=== PATIENT | male | born 1965 | race Hispanic/Latino ===

== ENCOUNTER 2017-07-04 09:32 | Day surgery (SDC) | payer SELFPAY ==
[2017-07-04 10:22] LABS: #Basophils 0.1 thou/uL (0.0-0.2); #Eosinphils 0.5 thou/uL (0.0-0.7); #Lymphocytes 2.8 thou/uL (1.20-3.40); #Monocytes 0.5 thou/uL (0.11-0.59); #Neutrophils 6.9 thou/uL (1.40-6.50); %Basophils 0.7 % (0.0-1.0); %Eosinophils 4.8 % (0.0-10.0); %Lymphocytes 25.8 % (21.0-51.0); %Monocytes 4.8 % (0.0-10.0); Hematocrit 43.4 % (42.0-52.0); Mean Platelet Volume 6.8 fL (7.4-10.4); Red Blood Cell (RBC) Count 4.58 mill/uL (4.70-6.10); White Blood Cell (WBC) Count 10.8 thou/uL (4.8-10.8)
[2017-07-04 10:53] LABS: Lactic Acid - Sepsis 1.3 mmol/L (0.5-2.2)
[2017-07-04 10:56] LABS: ALT (SGPT) 23 U/L (8-55); AST (SGOT) 14 U/L (5-34); Alkaline Phosphatase 59 U/L (40-150); Anion Gap 11 mmol/L (10-20); BUN (Urea Nitrogen) 12 mg/dL (8.9-20.6); Bilirubin, Total 0.4 mg/dL (0.2-1.2); Calc. Creatinine Clearance 0 mL/min (70-130); Calcium 9.8 mg/dL (7.8-10.44); Carbon Dioxide 27 mmol/L (22-29); Chloride 107 mmol/L (98-107); Estimated GFR-MDRD Greater than 90; Globulin 3.3 g/dL (2.4-3.5); Protein, Total 7.5 g/dL (6.0-8.3)
[2017-07-04] MEDS ORDERED: Morphine 4 MG/ML VIAL ONE (11:14)
[2017-07-04] MEDS ORDERED: Ondansetron HCl/PF 4 MG/2 ML Vial ONE ×2 (11:15→15:50)
[2017-07-04 14:26] LABS: Bilirubin Negative (Negative); Blood, Urine Negative (Negative); Glucose, Urine (Dipstick) Negative (Negative); Ketone, Urine Negative (Negative); Nitrite Negative (Negative); Protein, Urine (Dipstick) Negative (Neg-Trace); Urobilinogen 0.2 mg/dL (0.2-1.0)
[2017-07-04] MEDS ORDERED: Dexamethasone 20 MG/5 ML VIAL ONE (15:50)
[2017-07-04] MEDS ORDERED: Glycopyrrolate 0.2 MG/ML 5 ML SYRINGE ONE (15:50)
[2017-07-04] MEDS ORDERED: Propofol 200 MG/20 ML VIAL ONE ×2 (15:50)
[2017-07-04] MEDS ORDERED: Ketorolac Tromethamine 30 MG/ML VIAL ONE (15:50)
[2017-07-04] MEDS ORDERED: Lidocaine 1% PF 5 ML VIAL ONE (15:50)
[2017-07-04] MEDS ORDERED: Metoclopramide HCl 10 MG/2 ML VIAL ONE (15:50)
--- NOTE | 2017-07-04 17:54 | OP ---
DATE OF OPERATION: 07/04/2017 PREOPERATIVE DIAGNOSIS: Incarcerated umbilical hernia. POSTOPERATIVE DIAGNOSIS: Incarcerated umbilical hernia. PROCEDURE PERFORMED: Incarcerated umbilical hernia repair with mesh, Proceed ventral patch 4 cm. SURGEON: Ian Barry M.D. ANESTHESIA: General. ESTIMATED BLOOD LOSS: Minimal. COMPLICATIONS: None. SPECIMEN: None. FINDINGS: Umbilical hernia. TECHNIQUE: The patient was taken to the operating room and placed supine on the table. After genera l anesthetic was obtained, the abdomen was prepped and draped in a sterile fashion. Curved incision was made below the umbilicus. Cautery was used to dissect down to and score the fascia. The umbilic al stalk was amputated from the fascia exposing the umbilical defect. The incarcerated preperitoneal and omental fat was able to be reduced back into the abdominal cavity. The edges of the fascial def ect are dissected back to good tissue. The small Proceed ventral patch was brought into the sterile field. The underlay was placed in the abdominal cavity. Its tails pulled up laterally to pull the m esh up against the posterior abdominal wall. The tails were sewn via U stitch of permanent braided s uture at the edges of the fascia superiorly, inferiorly, and laterally. The tails were cut at the le veto of the fascia. The wound is irrigated. Local anesthetic is applied. The fascia was closed loos kareem over the mesh. The umbilical stalk is tacked back down using 3-0 Vicryl. The skin was closed us ing running 4-0 Monocryl and Dermabond. The patient was en route to recovery in stable condition. A ll instrument counts, needle counts, and lap counts were correct.
== END 2017-07-04 17:13 | disposition home or self-care (01) ==
LOC: ERS 09:32 → SDC 12:48 → ERS 12:48 → SDC 17:13 → ERS 18:30
PROVIDERS: ATTEND Surgery
PROC: 0WUF0JZ Supplement Abdominal Wall with Synthetic Substitute, Open Approach (ICD-10-PCS; principal; 2017-07-04)
DX: K42.0 Umbilical hernia with obstruction, without gangrene (principal); I10 Essential (primary) hypertension; Z77.22 Contact with and (suspected) exposure to environmental tobacco smoke (acute) (chronic); Z98.890 Other specified postprocedural states
CPT/HCPCS: 36415; 80053; 81003; 83605; 85025; 93005; 96361; 96374; 96375; J1100; J1885; J2001; J2270; J2405; J2704; J2765

== ENCOUNTER 2019-03-25 22:16 | Emergency (ER) | payer SELFPAY ==
[2019-03-25] MEDS ORDERED: Ketorolac Tromethamine 30 MG/ML VIAL ONE (22:44)
[2019-03-25 22:49] LABS: #Basophils 0.1 thou/uL (0.0-0.2); #Eosinphils 0.6 thou/uL (0.0-0.7); #Lymphocytes 3.5 thou/uL (1.20-3.40); #Monocytes 0.9 thou/uL (0.11-0.59); #Neutrophils 7.9 thou/uL (1.40-6.50); %Basophils 0.5 % (0.0-1.0); %Eosinophils 4.6 % (0.0-10.0); %Monocytes 6.7 % (0.0-10.0); %Neutrophils 61.2 % (42.0-75.0); Hemoglobin 14.5 g/dL (14.0-18.0); Mean Corpuscular HGB CONC 34.1 g/dL (32.0-36.0); Mean Corpuscular Hemoglobin 32.2 pg (27.0-31.0); Mean Corpuscular Volume 94.2 fL (78.0-98.0); Mean Platelet Volume 7.1 fL (7.4-10.4); Platelet Count 275 thou/uL (130-400); RBC Distribution Width 11.7 % (11.5-14.5)
[2019-03-25 23:08] LABS: Bacteria/HPF None Seen HPF (None Seen); Bilirubin Negative (Negative); Blood, Urine Negative (Negative); Calcium Oxalate Crystals Rare HPF (None Seen); Clarity Clear (Clear); Glucose, Urine (Dipstick) Normal (Negative); Leukocyte Negative Leu/uL (Negative); Nitrite Negative (Negative); Protein, Urine (Dipstick) 50 mg/dL (Neg-Trace); RBC/HPF 0-3 HPF (0-3); Squamous Epithelial None Seen HPF (0-3); Urobilinogen Normal mg/dL (Less than 2); WBC/HPF 0-3 HPF (0-3)
[2019-03-25 23:13] LABS: ALT (SGPT) 16 U/L (8-55); AST (SGOT) 11 U/L (5-34); Albumin 4.3 g/dL (3.5-5.0); Alkaline Phosphatase 66 U/L (40-150); Anion Gap 12 mmol/L (10-20); BUN (Urea Nitrogen) 13 mg/dL (8.4-25.7); Bilirubin, Total 0.2 mg/dL (0.2-1.2); Calc. Creatinine Clearance 0 mL/min (70-130); Calcium 9.5 mg/dL (7.8-10.44); Carbon Dioxide 28 mmol/L (22-29); Chloride 103 mmol/L (98-107); Estimated GFR-MDRD Greater than 90; Globulin 2.7 g/dL (2.4-3.5); Glucose 92 mg/dL (70-105); Lipase 14 U/L (8-78); Potassium 3.8 mmol/L (3.5-5.1); Sodium 139 mmol/L (136-145)
--- NOTE | 2019-03-25 23:13 | CT ---
CT Stone Protocol History: Low back pain. Comparison: CT abdomen and pelvis 2013 Findings: Lung bases are clear. No pericardial effusion. There is cholelithiasis. The right kidney has slightly hyperdense right renal vein. There is a hypodensity interpolar right ki dney measuring fluid attenuation. No dilated loops of large or small bowel. The appendix has a few appendicoliths without enlargement o r periappendiceal inflammation. Noncontrast evaluation of the spleen and adrenal glands are unremarkable. Incidental note is made of a splenule. Mild hypertrophy left adrenal gland. No retroperitoneal periaortic adenopathy. Impression: 1. Subtle asymmetric enlargement right renal vein which is slightly hyperdense. This may be artifactu al although renal vein thrombosis can have this appearance. Exam is limited without intravenous contrast. Ultrasound may be helpful this patient. 2. New hypodensity interpolar right kidney measures fluid attenuation suggestive of a cyst although s hould be interrogated on ultrasound. 3. No nephroureterolithiasis. 4. Normal appendix. 5. Cholelithiasis without cholecystitis.
[2019-03-25 23:16] LABS: Sperm/HPF 4+ HPF (None Seen)
--- NOTE | 2019-03-26 00:04 | ULT ---
US Renal Rt Unilateral History: Renal vein thrombosis Comparison: CT same day Findings: Right renal vein is patent. Interpolar right renal cyst. No hydronephrosis. Impression: Right renal cyst and patent renal vein. No renal vein thrombosis.
== END 2019-03-26 02:12 | disposition home or self-care (01) ==
LOC: ERS 22:16
DX: R10.9 Unspecified abdominal pain (principal); Z71.6 Tobacco abuse counseling; I10 Essential (primary) hypertension; F41.9 Anxiety disorder, unspecified; F17.210 Nicotine dependence, cigarettes, uncomplicated; Z79.899 Other long term (current) drug therapy
CPT/HCPCS: 74176; 76775; 80053; 81003; 81015; 83605; 83690; 85025; 94760; 96361; 96374; 99406; J1885

== ENCOUNTER 2021-06-05 09:46 | Outpatient (CLI) | payer SELFPAY ==
[2021-06-05 10:43] LABS: #Eosinphils 0.5 10x3/uL (0.0-0.5); #Monocytes 0.6 10x3/uL (0.0-1.1); #Neutrophils 6.3 10x3/uL (1.5-8.4); %Basophils 0.4 % (0.0-2.0); %Eosinophils 5.4 % (0.0-6.0); %Lymphocytes 23.6 % (18.0-47.0); %Monocytes 5.9 % (0.0-10.0); %Neutrophils 64.1 % (40.0-75.0); Hemoglobin 8.3 g/dL (13.5-17.5); Mean Corpuscular HGB CONC 28.3 g/dL (32.0-36.0); Mean Corpuscular Hemoglobin 20.5 pg (27.0-33.0); Mean Corpuscular Volume 72.3 fl (81.2-95.1); Mean Platelet Volume 9.3 fl (7.4-10.4); Platelet Count 378 10x3/uL (150-450); RBC Distribution Width 15.6 % (11.5-14.5); Red Blood Cell (RBC) Count 4.05 10x6/uL (4.32-5.72); White Blood Cell (WBC) Count 9.8 10x3/uL (3.5-10.5)
[2021-06-05 11:11] LABS: ALT (SGPT) 19 U/L (8-55); AST (SGOT) 12 U/L (5-34); Alkaline Phosphatase 76 U/L (40-110); Bilirubin, Direct 0.2 mg/dL (0.1-0.3); Bilirubin, Total 0.4 mg/dL (0.2-1.2); Protein, Total 6.8 g/dL (6.0-8.3)
[2021-06-05 15:28] LABS: Hypochromia SLIGHT = 6-15 cells (100X) (0-5/hpf); Microcytosis SLIGHT = 6-15 cells (100X) (0-5/hpf)
[2021-06-05 15:29] LABS: Platelet Morphology Comment Appears Adequate
[2021-06-05 21:10] LABS: SARS-CoV-2 PCR by NAA Not Detected (NotDetected)
== END 2021-06-05 09:47 | disposition home or self-care (01) ==
LOC: LABBT 09:46
PROVIDERS: ATTEND Internal Medicine Cardiovascular Disease
DX: Z01.812 Encounter for preprocedural laboratory examination (principal); Z20.822 Contact with and (suspected) exposure to COVID-19
CPT/HCPCS: 80076; 85025; U0003; U0005

== ENCOUNTER 2021-08-15 09:04 | Emergency (ER) | payer SELFPAY ==
[2021-08-15 10:27] LABS: ALT (SGPT) 22 U/L (8-55); AST (SGOT) 18 U/L (5-34); Albumin 3.5 g/dL (3.5-5.0); Alkaline Phosphatase 61 U/L (40-110); Anion Gap 11 mmol/L (10-20); BUN (Urea Nitrogen) 9 mg/dL (8.4-25.7); Bilirubin, Total 0.2 mg/dL (0.2-1.2); Calc. Creatinine Clearance 0 mL/min (70-130); Calcium 8.8 mg/dL (7.8-10.44); Carbon Dioxide 23 mmol/L (22-29); Chloride 107 mmol/L (98-107); Globulin 2.9 g/dL (2.4-3.5); Glucose 112 mg/dL (70-105); Potassium 3.8 mmol/L (3.5-5.1); Protein, Total 6.4 g/dL (6.0-8.3); Sodium 137 mmol/L (136-145)
[2021-08-15 10:40] LABS: #Eosinphils 0.2 thou/uL (0.0-0.7); #Lymphocytes 1.4 thou/uL (1.20-3.40); #Monocytes 0.7 thou/uL (0.11-0.59); #Neutrophils 5.1 thou/uL (1.40-6.50); %Basophils 0.2 % (0.0-1.0); %Eosinophils 2.9 % (0.0-10.0); %Lymphocytes 19.2 % (21.0-51.0); %Monocytes 9.7 % (0.0-10.0); %Neutrophils 68.1 % (42.0-75.0); Hypochromia SLIGHT = 6-15 cells (100X) (0-5/hpf); MDiff Complete? YES; Mean Corpuscular HGB CONC 29.1 g/dL (32.0-36.0); Mean Corpuscular Hemoglobin 19.6 pg (27.0-31.0); Mean Corpuscular Volume 67.5 fL (78.0-98.0); Mean Platelet Volume 8.9 fL (7.4-10.4); Microcytosis SLIGHT = 6-15 cells (100X) (0-5/hpf); Platelet Count 276 thou/uL (130-400); Red Blood Cell (RBC) Count 4.09 mill/uL (4.70-6.10); White Blood Cell (WBC) Count 7.5 thou/uL (4.8-10.8)
[2021-08-15] MEDS ORDERED: Iopamidol-370 76% 500 ML 1 ML ONE (11:25)
[2021-08-15 12:31] LABS: Bilirubin Negative (Negative); Blood, Urine Negative (Negative); Clarity Clear (Clear); Glucose, Urine (Dipstick) Normal (Negative); Ketone, Urine Negative (Negative); Leukocyte Negative Leu/uL (Negative); Nitrite Negative (Negative); Protein, Urine (Dipstick) Negative (Neg-Trace); Specific Gravity, Urine 1.008 (1.002-1.036); Urobilinogen Normal mg/dL (Less than 2)
== END 2021-08-15 13:10 | disposition home or self-care (01) ==
LOC: ERS 09:04
DX: R19.7 Diarrhea, unspecified (principal); I10 Essential (primary) hypertension; E11.9 Type 2 diabetes mellitus without complications; E78.5 Hyperlipidemia, unspecified; D64.9 Anemia, unspecified; F17.210 Nicotine dependence, cigarettes, uncomplicated; Z79.899 Other long term (current) drug therapy
CPT/HCPCS: 36415; 74177; 80053; 81003; 85025; Q9967

== ENCOUNTER 2021-08-31 11:02 | Outpatient (CLI) | payer SELFPAY ==
[2021-09-01 08:23] LABS: SARS-CoV-2 PCR by NAA DETECTED (NotDetected)
== END 2021-08-31 11:03 | disposition home or self-care (01) ==
LOC: LABBT 11:02
PROVIDERS: ATTEND Internal Medicine Gastroenterology
DX: U07.1 COVID-19 (principal); D50.9 Iron deficiency anemia, unspecified; Z86.010 Personal history of colon polyps; Z85.038 Personal history of other malignant neoplasm of large intestine
CPT/HCPCS: U0003; U0005

== ENCOUNTER 2021-09-03 07:07 | Day surgery (SDC) | payer OTHER ==
[2021-08-31 11:18] VITALS: BMI 34.0
[2021-09-03] MEDS ORDERED: PROPOFOL 200 MG/20 ML VIAL ONE (09:41)
== END 2021-09-03 11:00 | disposition home or self-care (01) ==
LOC: SDC 07:07
PROVIDERS: ATTEND Internal Medicine Gastroenterology
PROC: 0DJ08ZZ Inspection of Upper Intestinal Tract, Via Natural or Artificial Opening Endoscopic (ICD-10-PCS; principal; 2021-09-03)
PROC: 0DBL8ZX Excision of Transverse Colon, Via Natural or Artificial Opening Endoscopic, Diagnostic (ICD-10-PCS; principal; 2021-09-03)
DX: D50.9 Iron deficiency anemia, unspecified (principal); C18.3 Malignant neoplasm of hepatic flexure; U07.1 COVID-19; E11.51 Type 2 diabetes mellitus with diabetic peripheral angiopathy without gangrene; K21.9 Gastro-esophageal reflux disease without esophagitis; I10 Essential (primary) hypertension; F17.200 Nicotine dependence, unspecified, uncomplicated; E78.00 Pure hypercholesterolemia, unspecified; Z87.19 Personal history of other diseases of the digestive system; Z79.02 Long term (current) use of antithrombotics/antiplatelets; Z79.84 Long term (current) use of oral hypoglycemic drugs; Z79.899 Other long term (current) drug therapy
CPT/HCPCS: 88305; J2704

== ENCOUNTER 2021-11-30 20:14 | Inpatient (IN) | payer OTHER, SELFPAY ==
[~2021-11-30 20:14] MED LIST: Iopamidol-370 76% 500 ML 1 ML ONE
[2021-11-30] MEDS ORDERED: Ondansetron PF 4 MG/2 ML Vial ONE (20:44)
[2021-11-30] MEDS ORDERED: Morphine 4 MG/ML VIAL ONE ×3 (20:44→22:03)
[2021-11-30 20:56] LABS: #Eosinphils 0.2 thou/uL (0.0-0.7); #Lymphocytes 1.3 thou/uL (1.20-3.40); #Monocytes 0.5 thou/uL (0.11-0.59); %Basophils 0.3 % (0.0-1.0); %Eosinophils 2.5 % (0.0-10.0); %Neutrophils 79.3 % (42.0-75.0); Hemoglobin 14.6 g/dL (14.0-18.0); Mean Corpuscular HGB CONC 33.2 g/dL (32.0-36.0); Mean Corpuscular Hemoglobin 30.1 pg (27.0-31.0); Mean Corpuscular Volume 90.5 fL (78.0-98.0); Mean Platelet Volume 8.9 fL (7.4-10.4); Platelet Count 257 thou/uL (130-400); RBC Distribution Width 20.5 % (11.5-14.5); Red Blood Cell (RBC) Count 4.86 mill/uL (4.70-6.10)
[2021-11-30 21:20] LABS: ALT (SGPT) 22 U/L (8-55); AST (SGOT) 17 U/L (5-34); Albumin 4.2 g/dL (3.5-5.0); Alkaline Phosphatase 79 U/L (40-110); Anion Gap 15 mmol/L (10-20); BUN (Urea Nitrogen) 8 mg/dL (8.4-25.7); Bilirubin, Total 0.6 mg/dL (0.2-1.2); Calc. Creatinine Clearance 0 mL/min (70-130); Carbon Dioxide 20 mmol/L (22-29); Chloride 104 mmol/L (98-107); Globulin 3.1 g/dL (2.4-3.5); Glucose 130 mg/dL (70-105); Lipase 9 U/L (8-78); Potassium 3.9 mmol/L (3.5-5.1); Protein, Total 7.3 g/dL (6.0-8.3); Sodium 135 mmol/L (136-145)
[2021-11-30] MEDS ORDERED: Morphine 4 MG/ML VIAL SLOW IVP PRN (23:07)
[2021-11-30] MEDS ORDERED: Ondansetron ODT 4 MG TAB SL PRN (23:15)
[2021-11-30] MEDS ORDERED: Ondansetron PF 4 MG/2 ML Vial IVP PRN ×2 (23:15→23:22)
[2021-11-30] MEDS ORDERED: Dextrose 50% Abboject 50 ML SYRINGE SLOW IVP PRN (23:22)
[2021-11-30] MEDS ORDERED: HumaLOG 300 UNITS/3 ML VIAL SC PRN (23:22)
[2021-11-30] MEDS ORDERED: Promethazine HCl 25 MG/ML VIAL IM PRN (23:22)
[2021-11-30] MEDS ORDERED: hydrALAZINE 20 MG/ML VIAL SLOW IVP PRN (23:22)
[2021-11-30] MEDS ORDERED: Dextrose 5% in Water 1,000 ML IV PRN (23:22)
[2021-11-30] MEDS ORDERED: Ketorolac Tromethamine 30 MG/ML VIAL ONE (23:24)
[2021-11-30] MEDS: Sodium Chloride 0.9% 1,000 ML IV SCH (23:27)
[2021-11-30] MEDS: Ketorolac Tromethamine 30 MG/ML VIAL IVP PRN (23:28)
[2021-12-01] MEDS: Morphine 4 MG/ML VIAL SLOW IVP PRN ×5 (01:10→21:45)
[2021-12-01 01:11] LABS: SARS-CoV-2 NAA Rapid Test Not Detected (NotDetected)
[2021-12-01 06:17] VITALS: BMI 31.4
[2021-12-01] MEDS: Sodium Chloride 0.9% 1,000 ML IV SCH ×2 (08:57→20:29)
[2021-12-01] MEDS: Lisinopril 20 MG TAB PO SCH (08:59)
[2021-12-01] MEDS: Famotidine/PF 20 mg/2ml Vial SLOW IVP SCH ×2 (08:59→21:46)
[2021-12-01] MEDS: Famotidine 20 MG TAB PO SCH ×2 (08:59→20:29)
[2021-12-01] MEDS ORDERED: Enoxaparin Sodium 40 MG/0.4 ML SYRINGE SC SCH (09:00)
[2021-12-01] MEDS: Neomycin 500 mg Tablet PO SCH ×4 (14:15→18:46)
[2021-12-01] MEDS: metroNIDAZOLE 500 MG TAB PO SCH ×2 (16:18→20:29)
[2021-12-02] MEDS: Morphine 4 MG/ML VIAL SLOW IVP PRN (00:36)
[2021-12-02] MEDS: Sodium Chloride 0.9% 1,000 ML IV SCH ×5 (03:28→23:42)
[2021-12-02] MEDS: Famotidine/PF 20 mg/2ml Vial SLOW IVP SCH ×2 (10:05→23:41)
[2021-12-02] MEDS: Famotidine 20 MG TAB PO SCH ×2 (10:32→23:41)
[2021-12-02] MEDS: metroNIDAZOLE 500 MG TAB PO SCH (10:32)
[2021-12-02] MEDS: Lisinopril 20 MG TAB PO SCH (10:32)
[2021-12-02] MEDS: Ketorolac Tromethamine 30 MG/ML VIAL IVP PRN (10:33)
[2021-12-02] MEDS ORDERED: Midazolam HCl 2 mg/2 ml Vial ONE (12:49)
[2021-12-02] MEDS ORDERED: Fentanyl 100 MCG/2 ML VIAL ONE ×4 (12:49→17:26)
[2021-12-02] MEDS ORDERED: Ropivacaine 0.5% HCl/PF (150 MG/30 ML VIAL) ONE (12:49)
[2021-12-02] MEDS ORDERED: Bupivacaine 0.25% 10 ML VIAL ONE (14:04)
[2021-12-02] MEDS ORDERED: Lidocaine 1% w/Epinephrine 1:100K 20 ML VIAL ONE (14:04)
[2021-12-02] MEDS ORDERED: Sodium Chloride 0.9% 100 ML ONE (14:29)
[2021-12-02] MEDS ORDERED: cefOXitin 2 GM VIAL ONE (14:29)
[2021-12-02] MEDS ORDERED: HumaLOG 300 UNITS/3 ML VIAL SC PRN (17:21)
[2021-12-02] MEDS ORDERED: Promethazine HCl 25 MG/ML VIAL IM PRN ×2 (17:21→17:42)
[2021-12-02] MEDS ORDERED: Ondansetron PF 4 MG/2 ML Vial IVP PRN ×2 (17:21→17:42)
[2021-12-02] MEDS ORDERED: diphenhydrAMINE 50 MG/ML VIAL IM PRN (17:42)
[2021-12-02] MEDS ORDERED: diphenhydrAMINE 50 MG/ML VIAL IVP PRN (17:42)
[2021-12-02] MEDS ORDERED: fentaNYL Citrate/PF 2,000 MCG in Sodium Chloride 0.9% 60 ML IV SCH (17:42)
[2021-12-02] MEDS ORDERED: Zolpidem Tartrate 5 MG TAB PO PRN (17:42)
[2021-12-02] MEDS ORDERED: Naloxone HCl 0.4 mg/ml Vial IV PRN (17:42)
[2021-12-02] MEDS ORDERED: diphenhydrAMINE 25 MG CAP PO PRN (17:42)
[2021-12-02] MEDS ORDERED: Communication Order-Pharmacy FS SCH (17:45)
[2021-12-02] MEDS: cefOXitin 2 GM in Sodium Chloride 0.9% 100 ML IVPB SCH (23:41)
[2021-12-02] MEDS: Ketorolac Tromethamine 30 MG/ML VIAL IVP SCH (23:41)
[2021-12-02] MEDS: Acetaminophen 325 MG TAB PO SCH (23:41)
[2021-12-02] MEDS: hydrALAZINE 20 MG/ML VIAL SLOW IVP PRN (23:42)
[2021-12-03] MEDS: hydrALAZINE 20 MG/ML VIAL SLOW IVP PRN (04:18)
[2021-12-03] MEDS: Ketorolac Tromethamine 30 MG/ML VIAL IVP SCH ×3 (05:58→18:28)
[2021-12-03] MEDS: cefOXitin 2 GM in Sodium Chloride 0.9% 100 ML IVPB SCH (05:59)
[2021-12-03] MEDS: Acetaminophen 325 MG TAB PO SCH ×4 (06:00→23:40)
[2021-12-03 06:11] LABS: Anion Gap 15 mmol/L (10-20); BUN (Urea Nitrogen) 4 mg/dL (8.4-25.7); Calc. Creatinine Clearance 147 mL/min (70-130); Calcium 8.8 mg/dL (7.8-10.44); Carbon Dioxide 21 mmol/L (22-29); Chloride 104 mmol/L (98-107); Glucose 119 mg/dL (70-105); Potassium 3.8 mmol/L (3.5-5.1); Sodium 136 mmol/L (136-145)
[2021-12-03 06:12] LABS: #Eosinphils 0.1 thou/uL (0.0-0.7); #Lymphocytes 1.8 thou/uL (1.20-3.40); #Monocytes 0.9 thou/uL (0.11-0.59); #Neutrophils 10.2 thou/uL (1.40-6.50); %Basophils 0.1 % (0.0-1.0); %Eosinophils 0.5 % (0.0-10.0); %Lymphocytes 13.9 % (21.0-51.0); %Monocytes 6.8 % (0.0-10.0); %Neutrophils 78.6 % (42.0-75.0); Band 5 % (5-11); Lymphocytes 21 % (21-51); MDiff Complete? YES; Mean Corpuscular HGB CONC 33.9 g/dL (32.0-36.0); Mean Corpuscular Hemoglobin 30.7 pg (27.0-31.0); Mean Corpuscular Volume 90.8 fL (78.0-98.0); Mean Platelet Volume 8.6 fL (7.4-10.4); Monocytes 7 % (0-10); Neutrophil 67 % (42-75); Platelet Count 243 thou/uL (130-400); Platelet Morphology Comment Appears Adequate; RBC Distribution Width 19.7 % (11.5-14.5); RBC Morphology Normal; Red Blood Cell (RBC) Count 4.55 mill/uL (4.70-6.10); White Blood Cell (WBC) Count 12.9 thou/uL (4.8-10.8)
[2021-12-03] MEDS: Famotidine 20 MG TAB PO SCH ×2 (09:01→21:19)
[2021-12-03] MEDS: Enoxaparin Sodium 40 MG/0.4 ML SYRINGE SC SCH (09:02)
[2021-12-03] MEDS: Famotidine/PF 20 mg/2ml Vial SLOW IVP SCH ×2 (09:07→22:08)
[2021-12-03] MEDS: Sodium Chloride 0.9% 1,000 ML IV SCH ×2 (12:07→23:41)
[2021-12-04] MEDS: hydrALAZINE 20 MG/ML VIAL SLOW IVP PRN (03:55)
[2021-12-04] MEDS: Acetaminophen 325 MG TAB PO SCH ×3 (04:50→17:11)
[2021-12-04] MEDS ORDERED: cloNIDine 0.1 MG TAB PO SCH ×2 (05:45→06:45)
[2021-12-04] MEDS: Famotidine 20 MG TAB PO SCH ×2 (07:54→21:14)
[2021-12-04] MEDS: Enoxaparin Sodium 40 MG/0.4 ML SYRINGE SC SCH (07:54)
[2021-12-04] MEDS: cloNIDine 0.1 MG TAB PO PRN ×3 (07:54→11:54)
[2021-12-04] MEDS ORDERED: HYDROcodone/Acetaminophen 7.5/325 mg Tablet PO PRN (07:56)
[2021-12-04] MEDS ORDERED: Fentanyl 100 MCG/2 ML VIAL SLOW IVP PRN (07:56)
[2021-12-04] MEDS: Famotidine/PF 20 mg/2ml Vial SLOW IVP SCH ×2 (09:14→20:16)
[2021-12-04] MEDS: HYDROcodone/Acetaminophen 7.5/325 mg Tablet PO PRN ×3 (09:33→21:14)
[2021-12-04] MEDS: Sodium Chloride 0.9% 1,000 ML IV SCH (09:34)
[2021-12-04] MEDS: Ketorolac Tromethamine 30 MG/ML VIAL IVP PRN (13:47)
[2021-12-04] MEDS ORDERED: Lisinopril 20 MG TAB PO SCH (14:15)
[2021-12-04 15:17] LABS: Anion Gap 10 mmol/L (10-20); BUN (Urea Nitrogen) 4 mg/dL (8.4-25.7); Calc. Creatinine Clearance 157 mL/min (70-130); Calcium 8.4 mg/dL (7.8-10.44); Carbon Dioxide 23 mmol/L (22-29); Chloride 105 mmol/L (98-107); Glucose 151 mg/dL (70-105); Potassium 3.5 mmol/L (3.5-5.1); Sodium 134 mmol/L (136-145)
[2021-12-05] MEDS: Acetaminophen 325 MG TAB PO SCH ×2 (00:06→05:47)
[2021-12-05] MEDS: Ketorolac Tromethamine 30 MG/ML VIAL IVP PRN (05:47)
[2021-12-05 07:51] VITALS: BP 155/73; TEMP 98
[2021-12-05] MEDS: Famotidine/PF 20 mg/2ml Vial SLOW IVP SCH (08:04)
[2021-12-05] MEDS: Famotidine 20 MG TAB PO SCH (08:08)
[2021-12-05] MEDS: Enoxaparin Sodium 40 MG/0.4 ML SYRINGE SC SCH (08:08)
[2021-12-05] MEDS ORDERED: Lisinopril 20 MG TAB PO SCH (09:00)
[2021-12-05] MEDS: HYDROcodone/Acetaminophen 7.5/325 mg Tablet PO PRN (09:18)
== END 2021-12-05 12:35 | disposition home or self-care (01) | DRG 330 ==
LOC: ERS 20:14 → SURG A 21:26
PROVIDERS: ADMIT Hospitalist; ATTEND Hospitalist
PROC: 0DBF0ZZ Excision of Right Large Intestine, Open Approach (ICD-10-PCS; principal; 2021-12-02)
PROC: 0FT40ZZ Resection of Gallbladder, Open Approach (ICD-10-PCS; 2021-12-02)
PROC: 0DJW4ZZ Inspection of Peritoneum, Percutaneous Endoscopic Approach (ICD-10-PCS; 2021-12-02)
PROC: 3E0T3BZ Introduction of Anesthetic Agent into Peripheral Nerves and Plexi, Percutaneous Approach (ICD-10-PCS; 2021-12-02)
DX: C18.2 Malignant neoplasm of ascending colon (principal); K56.7 Ileus, unspecified; C77.2 Secondary and unspecified malignant neoplasm of intra-abdominal lymph nodes; Z20.822 Contact with and (suspected) exposure to COVID-19; I10 Essential (primary) hypertension; E78.5 Hyperlipidemia, unspecified; F41.9 Anxiety disorder, unspecified; F17.210 Nicotine dependence, cigarettes, uncomplicated; K21.9 Gastro-esophageal reflux disease without esophagitis; E11.51 Type 2 diabetes mellitus with diabetic peripheral angiopathy without gangrene; K80.20 Calculus of gallbladder without cholecystitis without obstruction; I95.9 Hypotension, unspecified; Z53.31 Laparoscopic surgical procedure converted to open procedure; Z28.310 Unvaccinated for COVID-19; Z98.890 Other specified postprocedural states; Z79.899 Other long term (current) drug therapy; Z79.02 Long term (current) use of antithrombotics/antiplatelets; Z79.84 Long term (current) use of oral hypoglycemic drugs
CPT/HCPCS: 36415; 36416; 74177; 80048; 80053; 83690; 84484; 85025; 88304; 88309; 93005; 96374; 96375; 96376; J0360; J0694; J1650; J1885; J2250; J2270; J2405; J2795; J3010; J3490; J7050; Q9967; S0020; S0028; U0002

== ENCOUNTER 2021-12-17 10:41 | Day surgery (SDC) | payer OTHER ==
[~2021-12-17 10:41] MED LIST changes: -Iopamidol-370 76% 500 ML 1 ML ONE; +Multivitamins, Adult 10 ML, Thiamine HCl 100 MG in Sodium Chloride 0.9% 1,000 ML IV SCH; +Ondansetron PF 4 MG/2 ML Vial IVP PRN; +Sodium Chloride 0.9% 1,000 ML IV SCH
[2021-12-17 11:28] VITALS: BP 125/59
== END 2021-12-17 12:53 | disposition home or self-care (01) ==
LOC: ONC/OP 10:41
PROVIDERS: ATTEND Surgery
DX: E86.0 Dehydration (principal)
CPT/HCPCS: 96361; 96365; J3411; J7050

== ENCOUNTER 2022-09-18 12:35 | Day surgery (SDC) | payer SELFPAY ==
[2022-09-18] MEDS ORDERED: Fentanyl 100 MCG/2 ML VIAL ONE (12:42)
[2022-09-18] MEDS ORDERED: Ketamine 50 MG/ML (10ML VIAL) ONE (13:26)
[2022-09-18] MEDS ORDERED: PROPOFOL 20 ML ONE ×2 (13:26→14:02)
[2022-09-18 14:01] LABS: #Eosinphils 0.5 thou/uL (0.0-0.7); #Lymphocytes 1.9 thou/uL (1.20-3.40); #Monocytes 0.9 thou/uL (0.11-0.59); #Neutrophils 15.3 thou/uL (1.40-6.50); %Basophils 0.1 % (0.0-1.0); %Eosinophils 2.8 % (0.0-10.0); %Monocytes 4.8 % (0.0-10.0); %Neutrophils 82.4 % (42.0-75.0); Hemoglobin 12.2 g/dL (14.0-18.0); Mean Corpuscular HGB CONC 32.9 g/dL (32.0-36.0); Mean Corpuscular Volume 94.3 fl (78.0-98.0); Mean Platelet Volume 6.6 fL (7.4-10.4); Platelet Count 404 10x3/uL (130-400); RBC Distribution Width 12.7 % (11.5-14.5); Red Blood Cell (RBC) Count 3.92 mill/uL (4.70-6.10); White Blood Cell (WBC) Count 18.6 10x3/uL (4.8-10.8)
[2022-09-18 14:23] LABS: ALT (SGPT) 15 U/L (8-55); AST (SGOT) 14 U/L (5-34); Albumin 3.7 g/dL (3.5-5.0); Alkaline Phosphatase 76 U/L (40-110); Anion Gap 15 mmol/L (10-20); BUN (Urea Nitrogen) 10 mg/dL (8.4-25.7); Bilirubin, Total 0.3 mg/dL (0.2-1.2); Calc. Creatinine Clearance 0 mL/min (70-130); Calcium 9.4 mg/dL (7.8-10.44); Carbon Dioxide 22 mmol/L (22-29); Chloride 104 mmol/L (98-107); Estimated GFR 108; Globulin 3.9 g/dL (2.4-3.5); Glucose 134 mg/dL (70-105); Potassium 4.1 mmol/L (3.5-5.1); Protein, Total 7.6 g/dL (6.0-8.3); Sodium 137 mmol/L (136-145)
[2022-09-18] MEDS ORDERED: Morphine 4 MG/ML VIAL ONE (15:27)
[2022-09-18] MEDS ORDERED: Ondansetron PF 4 MG/2 ML Vial ONE ×2 (15:27→16:17)
[2022-09-18] MEDS ORDERED: fentaNYL PF 100 MCG/2 ML SYRINGE ONE (15:54)
[2022-09-18] MEDS ORDERED: Ketorolac Tromethamine 30 MG/ML VIAL ONE (16:17)
[2022-09-18] MEDS ORDERED: Lidocaine 1% PF 5 ML VIAL ONE (16:17)
[2022-09-18] MEDS ORDERED: PROPOFOL 200 MG/20 ML VIAL ONE (16:18)
== END 2022-09-18 17:17 | disposition home or self-care (01) ==
LOC: ERS 12:35 → SDC 15:51
PROVIDERS: ATTEND Orthopaedic Surgery
PROC: 0RSJ3ZZ Reposition Right Shoulder Joint, Percutaneous Approach (ICD-10-PCS; principal; 2022-09-18)
DX: S43.084A Other dislocation of right shoulder joint, initial encounter (principal); C18.9 Malignant neoplasm of colon, unspecified; I10 Essential (primary) hypertension; E11.9 Type 2 diabetes mellitus without complications; E78.5 Hyperlipidemia, unspecified; F17.210 Nicotine dependence, cigarettes, uncomplicated; Z79.84 Long term (current) use of oral hypoglycemic drugs; Z79.899 Other long term (current) drug therapy; Z20.822 Contact with and (suspected) exposure to COVID-19; W19.XXXA Unspecified fall, initial encounter; Y92.096 Garden or yard of other non-institutional residence as the place of occurrence of the external cause
CPT/HCPCS: 36415; 80053; 85025; 96374; 96375; 99156; 99157; J1885; J2270; J2405; J2704; J3010; U0003; U0005